=== PATIENT | female | born 1945 | race Caucasian/White ===

== ENCOUNTER 2016-11-03 14:40 | Inpatient (IN) | payer MEDICARE, OTHER ==
--- NOTE | 2016-11-03 15:08 | ED ---
General Adult HPI - General Chief complaint: Neuro Symptoms/Deficit Stated complaint: TIA Symptoms Time Seen by Provider: 11/03/16 14:45 Source: patient, RN notes reviewed Mode of arrival: wheelchair Limitations: no limitations - History of Present Illness Initial comments: This is a 70-year-old female with past medical history significant for quadruple bypass as well as a TIA and 05. Patient comes in today stating that since yesterday morning she has had some weakness in her right hand and dragging her right foot a little she says is better today but she still doesn't quite feel at her baseline. Patient states she has difficulty holding onto thinks today. Patient denies any slurred speech patient denies any blurred vision patient denies headache patient denies any recent injury or trauma. Patient denies any chest pain palpitations difficulty breathing shortness of breath Patient denies abdominal pain patient denies nausea vomiting diarrhea. Patient denies any recent fever chills or cough. - Related Data Home Medications Medication Instructions Recorded Confirmed Aspirin EC [Ecotrin Low Dose] 81 mg PO DAILY 11/03/16 11/03/16 Carvedilol [Coreg] 6.25 mg PO BID 11/03/16 11/03/16 Cholecalciferol [Vitamin D3] 400 unit PO DAILY 11/03/16 11/03/16 Citrucel-Fiber 1 tab PO QID 11/03/16 11/03/16 Clopidogrel Bisulfate [Plavix] 75 mg PO DAILY 11/03/16 11/03/16 Dulaglutide [Trulicity] 0.75 mg SQ MINOR 11/03/16 11/03/16 Ezetimibe/Simvastatin [Vytorin 1 tab PO DAILY 11/03/16 11/03/16 10-40 mg Tablet] Insulin Glargine [Lantus] 6 unit SQ HS 11/03/16 11/03/16 Isosorbide Mononitrate ER [Imdur] 30 mg PO DAILY 11/03/16 11/03/16 L.acidoph,Paracasei, B.lactis 1 cap PO BID 11/03/16 11/03/16 [Probiotic] Levothyroxine Sodium [Synthroid] 75 mcg PO DAILY 11/03/16 11/03/16 Lisinopril [Zestril] 2.5 mg PO DAILY 11/03/16 11/03/16 Vitamin B Complex 1 cap PO BID 11/03/16 11/03/16 Allergies Allergy/AdvReac Type Severity Reaction Status Date / Time No Known Allergies Allergy Verified 11/03/16 15:22 Review of Systems ROS Statement: Those systems with pertinent positive or pertinent negative responses have been documented in the HPI. ROS Other: All systems not noted in ROS Statement are negative. Past Medical History Past Medical History: Coronary Artery Disease (CAD), CVA/TIA, Diabetes Mellitus , Hyperlipidemia, Hypertension, Thyroid Disorder History of Any Multi-Drug Resistant Organisms: None Reported Past Surgical History: Appendectomy, Bladder Surgery, Cholecystectomy, Coronary Bypass/CABG, Heart Catheterization With Stent, Hysterectomy, Tubal Ligation Additional Past Surgical History / Comment(s): cataract extraction Past Psychological History: No Psychological Hx Reported Smoking Status: Never smoker Past Alcohol Use History: None Reported Past Drug Use History: None Reported General Exam - General Exam Comments Initial Comments: GENERAL: Patient is well-developed and well-nourished. Patient is nontoxic and well- hydrated and is in no acute distress. ENT: Neck is soft and supple. No significant lymphadenopathy is noted. Oropharynx is clear. Moist mucous membranes. Neck has full range of motion without eliciting any pain. EYES: The sclera were anicteric and conjunctiva were pink and moist. Extraocular movements were intact and pupils were equal round and reactive to light. Eyelids were unremarkable. PULMONARY: Unlabored respirations. Good breath sounds bilaterally. No audible rales rhonchi or wheezing was noted. CARDIOVASCULAR: There is a regular rate and rhythm without any murmurs gallops or rubs. ABDOMEN: Soft and nontender with normal bowel sounds. No palpable organomegaly was noted. There is no palpable pulsatile mass. SKIN: Skin is clear with no lesions or rashes and otherwise unremarkable. NEUROLOGIC: Patient is alert and oriented x3. Cranial nerves II through XII are grossly intact. Motor and sensory are also intact. Normal speech, volume and content. Symmetrical smile. Cerebellar finger to nose testing is normal MUSCULOSKELETAL: Normal extremities with adequate strength and full range of motion. No lower extremity swelling or edema. No calf tenderness. LYMPHATICS: No significant lymphadenopathy is noted PSYCHIATRIC: Normal psychiatric evaluation. Normal interpersonal interactions appears functionally intact in deals appropriately with others. No signs of depression. No signs of anxiety. Limitations: no limitations Course Vital Signs 11/03/16 11/03/16 14:43 16:01 Temperature 98.5 F Pulse Rate 81 74 Respiratory 16 18 Rate Blood Pressure 135/85 134/65 O2 Sat by Pulse 98 95 Oximetry Medical Decision Making - Medical Decision Making EKG shows normal sinus rhythm at 70 bpm OH interval is 162 QRS is 82 QT interval 392 QTC is 446. EKG shows no ST segment elevation or depression or T wave normalities are noted. Chest the x-ray is normal. CT of the brain is normal. I spoke with Dr. Boswell he agreed to admit the patient admitted patient for TIA. I consult neurology. Patient stated she did not want to go to Dr. Brown so I admitted the patient to Dr. Boswell - Lab Data Result diagrams: 11/03/16 15:11 11/03/16 15:11 Lab Results 11/03/16 11/03/16 11/03/16 Range/Units 15:11 15:11 15:11 WBC 8.1 (3.8-10.6) k/uL RBC 3.63 L (3.80-5.40) m/uL Hgb 11.2 L (11.4-16.0) gm/dL Hct 32.3 L (34.0-46.0) % MCV 89.1 (80.0-100.0) fL MCH 31.0 (25.0-35.0) pg MCHC 34.8 (31.0-37.0) g/dL RDW 12.4 (11.5-15.5) % Plt Count 204 (150-450) k/uL Neutrophils % 65 % Lymphocytes % 27 % Monocytes % 4 % Eosinophils % 2 % Basophils % 1 % Neutrophils # 5.3 (1.3-7.7) k/uL Lymphocytes # 2.2 (1.0-4.8) k/uL Monocytes # 0.3 (0-1.0) k/uL Eosinophils # 0.2 (0-0.7) k/uL Basophils # 0.0 (0-0.2) k/uL PT (9.0-12.0) sec INR (<1.2) APTT (22.0-30.0) sec Sodium 141 (137-145) mmol/L Potassium 4.3 (3.5-5.1) mmol/L Chloride 107 (98-107) mmol/L Carbon Dioxide 23 (22-30) mmol/L Anion Gap 11 mmol/L BUN 20 H (7-17) mg/dL Creatinine 0.90 (0.52-1.04) mg/dL Est GFR (MDRD) Af Amer >60 (>60 ml/min/1.73 sqM) Est GFR (MDRD) Non-Af >60 (>60 ml/min/1.73 sqM) Glucose 179 H (74-99) mg/dL Calcium 9.7 (8.4-10.2) mg/dL Total Bilirubin 0.6 (0.2-1.3) mg/dL AST 47 H (14-36) U/L ALT 67 H (9-52) U/L Alkaline Phosphatase 56 (38-126) U/L Total Creatine Kinase 100 (30-135) U/L CK-MB (CK-2) 1.5 (0.0-2.4) ng/mL CK-MB (CK-2) Rel Index 1.5 Troponin I <0.012 (0.000-0.034) ng/mL Total Protein 7.5 (6.3-8.2) g/dL Albumin 4.1 (3.5-5.0) g/dL 11/03/16 Range/Units 15:11 WBC (3.8-10.6) k/uL RBC (3.80-5.40) m/uL Hgb (11.4-16.0) gm/dL Hct (34.0-46.0) % MCV (80.0-100.0) fL MCH (25.0-35.0) pg MCHC (31.0-37.0) g/dL RDW (11.5-15.5) % Plt Count (150-450) k/uL Neutrophils % % Lymphocytes % % Monocytes % % Eosinophils % % Basophils % % Neutrophils # (1.3-7.7) k/uL Lymphocytes # (1.0-4.8) k/uL Monocytes # (0-1.0) k/uL Eosinophils # (0-0.7) k/uL Basophils # (0-0.2) k/uL PT 10.8 (9.0-12.0) sec INR 1.1 (<1.2) APTT 22.1 (22.0-30.0) sec Sodium (137-145) mmol/L Potassium (3.5-5.1) mmol/L Chloride (98-107) mmol/L Carbon Dioxide (22-30) mmol/L Anion Gap mmol/L BUN (7-17) mg/dL Creatinine (0.52-1.04) mg/dL Est GFR (MDRD) Af Amer (>60 ml/min/1.73 sqM) Est GFR (MDRD) Non-Af (>60 ml/min/1.73 sqM) Glucose (74-99) mg/dL Calcium (8.4-10.2) mg/dL Total Bilirubin (0.2-1.3) mg/dL AST (14-36) U/L ALT (9-52) U/L Alkaline Phosphatase (38-126) U/L Total Creatine Kinase (30-135) U/L CK-MB (CK-2) (0.0-2.4) ng/mL CK-MB (CK-2) Rel Index Troponin I (0.000-0.034) ng/mL Total Protein (6.3-8.2) g/dL Albumin (3.5-5.0) g/dL Disposition Clinical Impression: Transient cerebral ischemia Disposition: ADMITTED IP TO THIS HOSP Referrals: Arie Brown MD [Primary Care Provider] - 1-2 days Time of Disposition: 16:36
[2016-11-03 15:50] LABS: Basophils % (A) 1 %; CH 30.7; CHCM 34.6; Eosinophils # (A) 0.2 k/uL (0-0.7); Eosinophils % (A) 2 %; HCT 32.3 % (34.0-46.0); HDW 2.69; HGB 11.2 gm/dL (11.4-16.0); Luc % (Auto) 1; Lymphocytes # (A) 2.2 k/uL (1.0-4.8); Lymphocytes % (A) 27 %; MCHC 34.8 g/dL (31.0-37.0); MCV 89.1 fL (80.0-100.0); Mean Platelet Volume 7.5; Monocytes # (A) 0.3 k/uL (0-1.0); Monocytes % (A) 4 %; Neutrophils # (A) 5.3 k/uL (1.3-7.7); Neutrophils % (A) 65 %; RBC 3.63 m/uL (3.80-5.40); RDW 12.4 % (11.5-15.5); WBC 8.1 k/uL (3.8-10.6); WBC (Perox) 8.07
--- NOTE | 2016-11-03 15:56 | CT ---
EXAMINATION TYPE: CT brain wo con for TPA DATE OF EXAM: 11/03/2016 COMPARISON: NONE HISTORY: Right sided weakness to upper and lower extremity. History of TIA. CT DLP: 1012.60 mGycm Automated exposure control for dose reduction was used. FINDINGS: Cortical atrophy is present. There is no hemorrhage or hydrocephalus. Periventricular white matter lo w-attenuation likely due to chronic small vessel ischemia. 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 Cer ebral vascular calcifications are present. The orbits show symmetric appearance. IMPRESSION: NO ACUTE ABNORMALITIES EVIDENT.
--- NOTE | 2016-11-03 15:57 | XR ---
EXAMINATION TYPE: XR chest 2V DATE OF EXAM: 11/03/2016 COMPARISON: NONE HISTORY: Altered mental status TECHNIQUE: Frontal and lateral views of the chest are obtained. FINDINGS: Patient is post median sternotomy and rotated. There are epicardial pacing leads and overl xiomara cardiac leads. Cardiac mediastinal silhouette, pulmonary vascularity and kael within normal limi ts. Dense nodule overlying the right upper lobe may be due to calcified granuloma. No evident pneumon ia, pneumothorax, or pleural effusion. Aorta is dense. IMPRESSION: No acute cardiopulmonary process.
[2016-11-03 16:00] LABS: INR 1.1 (<1.2); Partial Thromboplastin Time 22.1 sec (22.0-30.0); Prothrombin Time 10.8 sec (9.0-12.0)
[2016-11-03 16:02] LABS: ALT 67 U/L (9-52); AST 47 U/L (14-36); Alkaline Phosphatase 56 U/L (38-126); Anion Gap 11 mmol/L; Blood Urea Nitrogen 20 mg/dL (7-17); Calcium 9.7 mg/dL (8.4-10.2); Carbon Dioxide 23 mmol/L (22-30); Chloride 107 mmol/L (98-107); Glucose 179 mg/dL (74-99); Non-African American GFR(MDRD) >60 (>60 ml/min/1.73 sqM); Potassium 4.3 mmol/L (3.5-5.1); Sodium 141 mmol/L (137-145); Total Bilirubin 0.6 mg/dL (0.2-1.3); Total Protein 7.5 g/dL (6.3-8.2)
[2016-11-03 16:17] LABS: Creatine Kinase 100 U/L (30-135)
[2016-11-03 16:31] LABS: Creatine Kinase MB 1.5 ng/mL (0.0-2.4); Troponin I <0.012 ng/mL (0.000-0.034)
--- NOTE | 2016-11-03 17:41 | US ---
EXAMINATION TYPE: US carotid duplex BILAT DATE OF EXAM: 11/03/2016 COMPARISON: NONE CLINICAL HISTORY: Stenosis. right hand weakness, difficulty walking EXAM MEASUREMENTS: RIGHT: Peak Systolic Velocity (PSV) cm/sec ----- Right CCA: 94.2 ----- Right ICA: 123.9 ----- Right ECA: 90.5 ICA/CCA ratio: 1.3 RIGHT: End Diastole cm/sec ----- Right CCA: 29.8 ----- Right ICA: 38.3 ----- Right ECA: 11.9 LEFT: Peak Systolic Velocity (PSV) cm/sec ----- Left CCA: 83.3 ----- Left ICA: 104.4 ----- Left ECA: 86.3 ICA/CCA ratio: 1.3 LEFT: End Diastole cm/sec ----- Left CCA: 27.1 ----- Left ICA: 38.3 ----- Left ECA: 9.8 VERTEBRALS (direction of flow): Right Vertebral: Antegrade Left Vertebral: Antegrade Mild plaque noted bilateral bifurcations. No evidence of significant stenosis. IMPRESSION: There is antegrade flow in the vertebral arteries. The images and measurements suggest 2 5-45% stenosis in both internal carotid arteries. Criteria for Assigning % of Stenosis / Diameter reduction (Estimation based on the indirect measurements of the internal carotid artery velocities (ICA PSV). 1. Normal (no stenosis)=ICA PSV < 125 cm/s: ratio < 2.0: ICA EDV<40 cm/s. 2. Less than 50% stenosis=ICA PSV < 125 cm/s: ratio < 2.0: ICA EDV<40 cm/s. 3. 50 to 69% stenosis=ICA PSV of 125 to 230 cm/s: ration 2.0 ? 4.0: ICA EDV 40-100 cm/s. 4. Greater than 70% stenosis to near occlusion= ICA PSV > 230 cm/s: ratio > 4.0: ICA EDV > 100 cm/s. 5. Near occlusion= ICA PSV velocities may be low or undetectable: variable ratio and ICA EDV. 6. Total occlusion=unable to detect flow.
[2016-11-03] MEDS ORDERED: ONDANSETRON 4 MG/2 ML VIAL IVP PRN (18:51)
[2016-11-03] MEDS ORDERED: ACETAMINOPHEN TAB 325 MG TAB PO PRN (18:51)
--- NOTE | 2016-11-03 19:43 | P.CNNES ---
History of Present Illness Consult date: 11/03/16 Requesting physician: Arie Brown Reason for Consult: TIA Chief complaint: TIA History of Present Illness: The patient is a pleasant 70-year-old female who is being evaluated by the neurology service per the request of Dr. Boswell for a transient ischemic attack. The patient states that she felt like she was having off-balance numbness and some right sided weakness. The symptoms started yesterday around 10 AM. She did not seek any medical attention because she was out of town. Her symptoms lasted all day and started to improve early this morning. She did come in today with minimal right hemiparesis. The patient does have a previous history of transient ischemic attack over 10 years ago. She does take aspirin and Plavix, mainly for history of coronary artery disease. I did review her computed tomography scan of the brain which was normal except for mild generalized atrophy. Her carotid Doppler showed 25-45% stenosis, with no hemodynamically significant stenosis. Her CBC was normal except for mild anemia with a hemoglobin of 11.2. Her cardiac enzymes were normal. Her comprehensive metabolic profile was normal except for mild hepatic insufficiency with an AST of 47 and an ALT of 67. The patient was admitted for further workup and management. At the time of my evaluation, she is sitting up in her bedside chair and appears to be in no acute distress. She reports resolution of her right-sided weakness and she has been ambulating with no difficulties. She does complain of a chronic history of lower extremity cramps with no numbness or tingling. The symptoms mostly occur at night and these have caused significant insomnia at times. Review of Systems All systems: negative Constitutional: Denies chills, Denies fever Eyes: denies blurred vision, denies pain Ears, nose, mouth and throat: Denies headache, Denies sore throat Cardiovascular: Denies chest pain, Denies shortness of breath Respiratory: Denies cough Gastrointestinal: Denies abdominal pain, Denies diarrhea, Denies nausea, Denies vomiting Genitourinary: Denies dysuria, Denies hematuria Musculoskeletal: Reports muscle cramps, Reports myalgias Integumentary: Denies pruritus, Denies rash Neurological: Reports as per HPI, Denies numbness Psychiatric: Denies anxiety, Denies depression Endocrine: Denies fatigue, Denies weight change Past Medical History Past Medical History: Coronary Artery Disease (CAD), Chest Pain / Angina, CVA/ TIA, Diabetes Mellitus, Hyperlipidemia, Hypertension, Thyroid Disorder Additional Past Medical History / Comment(s): pt is rt side dominant History of Any Multi-Drug Resistant Organisms: None Reported Past Surgical History: Appendectomy, Bladder Surgery, Cholecystectomy, Coronary Bypass/CABG, Heart Catheterization With Stent, Hysterectomy, Tubal Ligation Additional Past Surgical History / Comment(s): cataract extraction, dental implant and has upper bridge. pt believes she had 2 stents after her cabg sx. Past Anesthesia/Blood Transfusion Reactions: No Reported Reaction Additional Past Anesthesia/Blood Transfusion Reaction / Comment(s): clausterphobia Date of Last Stent Placement:: unk Smoking Status: Never smoker - Past Family History Mother Family Medical History: Cancer Additional Family Medical History / Comment(s): lung cancer Father Family Medical History: Dementia Medications and Allergies Home Medications Medication Instructions Recorded Confirmed Type Aspirin EC [Ecotrin Low Dose] 81 mg PO DAILY 11/03/16 11/03/16 History Carvedilol [Coreg] 6.25 mg PO BID 11/03/16 11/03/16 History Cholecalciferol [Vitamin D3] 400 unit PO DAILY 11/03/16 11/03/16 History Citrucel-Fiber 1 tab PO QID 11/03/16 11/03/16 History Clopidogrel Bisulfate [Plavix] 75 mg PO DAILY 11/03/16 11/03/16 History Dulaglutide [Trulicity] 0.75 mg SQ MINOR 11/03/16 11/03/16 History Ezetimibe/Simvastatin [Vytorin 1 tab PO DAILY 11/03/16 11/03/16 History 10-40 mg Tablet] Insulin Glargine [Lantus] 6 unit SQ HS 11/03/16 11/03/16 History Isosorbide Mononitrate ER [Imdur] 30 mg PO DAILY 11/03/16 11/03/16 History L.acidoph,Paracasei, B.lactis 1 cap PO BID 11/03/16 11/03/16 History [Probiotic] Levothyroxine Sodium [Synthroid] 75 mcg PO DAILY 11/03/16 11/03/16 History Lisinopril [Zestril] 2.5 mg PO DAILY 11/03/16 11/03/16 History Vitamin B Complex 1 cap PO BID 11/03/16 11/03/16 History Allergies Allergy/AdvReac Type Severity Reaction Status Date / Time No Known Allergies Allergy Verified 11/03/16 15:22 Physical Examination - Vital Signs Vital Signs: Vital Signs Temp Pulse Pulse Resp BP BP Pulse Ox 11/03/16 18:15 98.8 F 75 17 130/64 98 11/03/16 17:55 97.8 F 75 19 138/89 97 11/03/16 17:25 98.7 F 72 18 143/67 97 11/03/16 16:37 97.1 F L 73 17 131/91 98 11/03/16 16:01 74 18 134/65 95 11/03/16 14:43 98.5 F 81 16 135/85 98 Intake and Output 11/03/16 11/03/16 11/03/16 06:59 14:59 22:59 Output Total 200 Balance -200 Output: Urine 200 Other: Weight 70.307 kg Patient Weight 11/04/16 06:59 Weight 70.307 kg - Constitutional General appearance: average body habitus - EENT EENT: ATNC, PERRL - Cardiovascular Cardiovascular: regular rate Extremities: no peripheral edema bilaterally, no clubbing, cyanosis - Gastrointestinal Gastrointestinal: soft, non-tender - Integumentary Integumentary: normal - Neurologic The patient is alert aware and oriented 3. Speech and language are normal. Strength is full in all 4 extremities. Sensory exam was normal to light touch in all 4 extremities. [id number] testing showed no dysmetria. No facial asymmetry is noticed on cranial nerve testing. No tremors or seizure- like activity is seen. Detailed motor examination: grossly full strength in all extremities - Musculoskeletal Musculoskeletal: no fluid collection - Psychiatric Psychiatric: mood/affect appropriate, cooperative Results - Laboratory Findings CBC and BMP: 11/03/16 15:11 11/03/16 15:11 Abnormal Lab Findings: Abnormal Labs 11/03/16 11/03/16 15:11 15:11 RBC 3.63 L Hgb 11.2 L Hct 32.3 L BUN 20 H Glucose 179 H AST 47 H ALT 67 H - Diagnostic Findings Comments: I did review her computed tomography scan of the brain, carotid Doppler, and laboratory workup. Assessment and Plan (1) Weakness of right side of body Status: Acute (2) Transient cerebral ischemia Status: Acute (3) Lower extremity pain Status: Chronic (4) Muscle cramping Status: Chronic Plan: The patient does appear to have suffered a transient ischemic attack with a transient episode of right hemiparesis and disequilibrium. The patient was advised to always seek immediate medical attention if any strokelike symptoms occur. Her symptoms have resolved at this time. She is already on aspirin and Plavix at home and I do recommend continuing this antiplatelet regimen. I will order a fasting lipid panel, EEG, and serum homocysteine level. She is already on statin therapy for her dyslipidemia. Her liver enzymes were slightly elevated and I do recommend continuing to monitor her levels, being on a statin drug. As for her lower extremity discomfort, further outpatient neurophysiological workup will be needed. Continue the rest of your current workup and management. I will continue to follow with you. Further recommendations to follow. Time with Patient: Greater than 30
[2016-11-03 20:47] LABS: Glucose,Whole Blood 259 mg/dL (75-99)
[2016-11-03] MEDS ORDERED: INSULIN GLARGINE 100 UNIT/ML 10 ML VIAL SQ SCH (21:00)
[2016-11-03] MEDS: SODIUM CHLORIDE 0.9% 1,000 ML IV SCH (21:02)
[2016-11-03] MEDS: CARVEDILOL 6.25 MG TAB PO SCH (21:03)
[2016-11-03] MEDS: B COMPLEX-VIT C-VIT E-ZINC 1 EACH TAB PO SCH (21:03)
[2016-11-03] MEDS: CALCIUM POLYCARBOPHIL 625 MG TAB PO SCH (21:03)
[2016-11-03] MEDS: LACTOBACILLUS ACIDOPH & BULGAR 1 EACH PACKET PO SCH (21:03)
[2016-11-03] MEDS ORDERED: CALCIUM POLYCARBOPHIL 625 MG TAB PO SCH (22:00)
[2016-11-04 00:27] VITALS: TEMP 97.8
[2016-11-04 05:14] VITALS: BP 92/48; PULSE 72
[2016-11-04 05:46] LABS: Glucose,Whole Blood 121 mg/dL (75-99)
[2016-11-04] MEDS: CARVEDILOL 6.25 MG TAB PO SCH (06:26)
[2016-11-04] MEDS ORDERED: LEVOTHYROXINE 75 MCG TAB PO SCH (06:30)
[2016-11-04 06:41] LABS: Basophils % (A) 1 %; CH 31.1; CHCM 33.8; Eosinophils # (A) 0.2 k/uL (0-0.7); Eosinophils % (A) 3 %; HCT 34.4 % (34.0-46.0); HDW 2.61; HGB 11.5 gm/dL (11.4-16.0); Luc # (Auto) 0.08; Luc % (Auto) 1; Lymphocytes # (A) 2.2 k/uL (1.0-4.8); Lymphocytes % (A) 34 %; MCHC 33.4 g/dL (31.0-37.0); MCV 92.6 fL (80.0-100.0); Monocytes # (A) 0.3 k/uL (0-1.0); Monocytes % (A) 5 %; Neutrophils # (A) 3.7 k/uL (1.3-7.7); Neutrophils % (A) 56 %; RBC 3.71 m/uL (3.80-5.40); RDW 13.4 % (11.5-15.5); WBC 6.6 k/uL (3.8-10.6); WBC (Perox) 7.16
[2016-11-04 07:01] LABS: Anion Gap 7 mmol/L; Blood Urea Nitrogen 17 mg/dL (7-17); Calcium 9.4 mg/dL (8.4-10.2); Carbon Dioxide 29 mmol/L (22-30); Chloride 105 mmol/L (98-107); Cholesterol 148 mg/dL (<200); Glucose 125 mg/dL (74-99); HDL Cholesterol 46 mg/dL (40-60); Non-African American GFR(MDRD) 57 (>60 ml/min/1.73 sqM); Potassium 4.4 mmol/L (3.5-5.1); Sodium 141 mmol/L (137-145); Triglycerides 218 mg/dL (<150)
[2016-11-04] MEDS ORDERED: PANTOPRAZOLE 40 MG TABLET PO SCH (07:30)
[2016-11-04] MEDS ORDERED: CHOLECALCIFEROL 400 UNIT TAB PO SCH (09:00)
[2016-11-04] MEDS ORDERED: EZETIMIBE 10 MG TAB PO SCH (09:00)
[2016-11-04] MEDS ORDERED: LISINOPRIL 2.5 MG TAB PO SCH (09:00)
[2016-11-04] MEDS ORDERED: ASPIRIN 81 MG CHEW PO SCH (09:00)
[2016-11-04] MEDS ORDERED: ATORVASTATIN 20 MG TAB PO SCH (09:00)
[2016-11-04] MEDS ORDERED: ISOSORBIDE MONONITRATE ER 30 MG TAB.ER.24H PO SCH (09:00)
--- NOTE | 2016-11-04 09:27 | P.HPIM ---
History of Present Illness H&P Date: 11/04/16 Chief Complaint: Altered mental status This is history of physical 70-year-old white female essentially admitted for altered mental status. She was at a restaurant 2 days ago and had brief alteration of mentation. Her she was with her who called the ambulance. She is now stable. She states that since she's been in the ambulance, she's had no symptoms. However, she has history of open heart surgery. The patient states no recent history of TIA symptoms. However, after evaluation in emergency room, she is appropriately admitted for this. Neurology is on consultation. I've seen her this morning without significant issue. Mentally she is back to her baseline as far as conversation. No numbness or Sima. No amaurosis fugax stated. Review of Systems Constitutional: Denies chills, Denies fever Eyes: denies blurred vision, denies pain Ears, nose, mouth and throat: Denies headache, Denies sore throat Cardiovascular: Denies chest pain, Denies shortness of breath Respiratory: Denies cough Gastrointestinal: Denies abdominal pain, Denies diarrhea, Denies nausea, Denies vomiting Genitourinary: Denies dysuria, Denies hematuria Neurological: Reports confusion Psychiatric: Denies anxiety, Denies depression Past Medical History Past Medical History: Coronary Artery Disease (CAD), Chest Pain / Angina, CVA/ TIA, Diabetes Mellitus, Hyperlipidemia, Hypertension, Thyroid Disorder Additional Past Medical History / Comment(s): pt is rt side dominant History of Any Multi-Drug Resistant Organisms: None Reported Past Surgical History: Appendectomy, Bladder Surgery, Cholecystectomy, Coronary Bypass/CABG, Heart Catheterization With Stent, Hysterectomy, Tubal Ligation Additional Past Surgical History / Comment(s): cataract extraction, dental implant and has upper bridge. pt believes she had 2 stents after her cabg sx. Past Anesthesia/Blood Transfusion Reactions: No Reported Reaction Additional Past Anesthesia/Blood Transfusion Reaction / Comment(s): clausterphobia Date of Last Stent Placement:: unk Smoking Status: Never smoker - Past Family History Mother Family Medical History: Cancer Additional Family Medical History / Comment(s): lung cancer Father Family Medical History: Dementia Medications and Allergies Home Medications Medication Instructions Recorded Confirmed Type Aspirin EC [Ecotrin Low Dose] 81 mg PO DAILY 11/03/16 11/03/16 History Carvedilol [Coreg] 6.25 mg PO BID 11/03/16 11/03/16 History Cholecalciferol [Vitamin D3] 400 unit PO DAILY 11/03/16 11/03/16 History Citrucel-Fiber 1 tab PO QID 11/03/16 11/03/16 History Clopidogrel Bisulfate [Plavix] 75 mg PO DAILY 11/03/16 11/03/16 History Dulaglutide [Trulicity] 0.75 mg SQ MINOR 11/03/16 11/03/16 History Ezetimibe/Simvastatin [Vytorin 1 tab PO DAILY 11/03/16 11/03/16 History 10-40 mg Tablet] Insulin Glargine [Lantus] 6 unit SQ HS 11/03/16 11/03/16 History Isosorbide Mononitrate ER [Imdur] 30 mg PO DAILY 11/03/16 11/03/16 History L.acidoph,Paracasei, B.lactis 1 cap PO BID 11/03/16 11/03/16 History [Probiotic] Levothyroxine Sodium [Synthroid] 75 mcg PO DAILY 11/03/16 11/03/16 History Lisinopril [Zestril] 2.5 mg PO DAILY 11/03/16 11/03/16 History Vitamin B Complex 1 cap PO BID 11/03/16 11/03/16 History Allergies Allergy/AdvReac Type Severity Reaction Status Date / Time No Known Allergies Allergy Verified 11/03/16 15:22 Physical Exam Vitals: Vital Signs Temp Pulse Pulse Resp BP BP Pulse Ox 11/04/16 04:00 97.8 F 72 17 92/48 96 11/04/16 00:00 97.8 F 78 16 98/52 97 11/03/16 20:00 97.9 F 72 17 85/50 98 11/03/16 18:15 98.8 F 75 17 130/64 98 11/03/16 17:55 97.8 F 75 19 138/89 97 11/03/16 17:25 98.7 F 72 18 143/67 97 11/03/16 16:37 97.1 F L 73 17 131/91 98 11/03/16 16:01 74 18 134/65 95 11/03/16 14:43 98.5 F 81 16 135/85 98 Intake and Output 11/03/16 11/04/16 11/04/16 22:59 06:59 14:59 Intake Total 600 Output Total 200 Balance -200 600 Intake: Intake, IV Titration 600 Amount Sodium Chloride 0.9% 1, 600 000 ml @ 75 mls/hr IV . [id number] [facility] Rx#:[id number] Output: Urine 200 Other: Voiding Method Toilet Toilet # Voids 2 Weight 70.2 kg - Constitutional General appearance: no acute distress - EENT Eyes: EOMI - Neck Neck: no lymphadenopathy - Respiratory Respiratory: bilateral: CTA - Cardiovascular Rhythm: regular Heart sounds: normal: S1, S2 - Gastrointestinal General gastrointestinal: soft, no tenderness - Neurologic Neurologic: CNII-XII intact - Musculoskeletal Musculoskeletal: gait normal - Psychiatric Psychiatric: A&O x's 3, appropriate affect Results CBC & Chem 7: 11/04/16 06:22 11/04/16 06:22 Labs: Abnormal Lab Results - Last 24 Hours (Table) 11/03/16 11/03/16 11/03/16 Range/Units 15:11 15:11 20:45 RBC 3.63 L (3.80-5.40) m/uL Hgb 11.2 L (11.4-16.0) gm/dL Hct 32.3 L (34.0-46.0) % BUN 20 H (7-17) mg/dL Glucose 179 H (74-99) mg/dL POC Glucose (mg/dL) 259 H (75-99) mg/dL AST 47 H (14-36) U/L ALT 67 H (9-52) U/L Triglycerides (<150) mg/dL 11/04/16 11/04/16 11/04/16 Range/Units 05:44 06:22 06:22 RBC 3.71 L (3.80-5.40) m/uL Hgb (11.4-16.0) gm/dL Hct (34.0-46.0) % BUN (7-17) mg/dL Glucose 125 H (74-99) mg/dL POC Glucose (mg/dL) 121 H (75-99) mg/dL AST (14-36) U/L ALT (9-52) U/L Triglycerides 218 H (<150) mg/dL Assessment and Plan (1) History of coronary artery bypass graft Status: Acute (2) Transient cerebral ischemia Status: Acute (3) Weakness of right side of body Status: Acute Plan: Go ahead and rule out any type of new vasculopathy. EEG with tachycardia, carotid Doppler pending. We'll anticipate discharge once cleared by neurology. The patient again seems back to baseline. See orders otherwise. Otherwise, laboratory results and testing/radiology have been reviewed. Time with Patient: Less than 30
--- NOTE | 2016-11-04 09:29 | P.DS ---
Providers Date of admission: 11/03/16 16:37 Attending physician: Bunny Boswell MD Consults: 11/03/16 16:37 Consult Physician Routine Consulting Provider: Ana Roy Consult Reason/Comments: TIA Do you want consulting provider notified?: Yes Primary care physician: Arie Brown - Discharge Diagnosis(es) (1) History of coronary artery bypass graft Current Visit: Yes Status: Acute (2) Transient cerebral ischemia Current Visit: Yes Status: Acute (3) Weakness of right side of body Current Visit: Yes Status: Acute Hospital Course: This discharge summary 70-year-old white female essentially meant for transient ischemic attack symptoms with right-sided weakness. She did have episode of altered mental status. However, she has now back to baseline. Neurologic workup is pending. Once this completed and cleared by neurology, I suspect she will be discharged in stable condition. She is seemingly back to her baseline normality. Plan - Discharge Summary New Discharge Prescriptions: No Action Dulaglutide [Trulicity] 0.75 mg SQ MINOR Aspirin EC [Ecotrin Low Dose] 81 mg PO DAILY Carvedilol [Coreg] 6.25 mg PO BID Cholecalciferol [Vitamin D3] 400 unit PO DAILY Citrucel-Fiber 1 tab PO QID Clopidogrel Bisulfate [Plavix] 75 mg PO DAILY Ezetimibe/Simvastatin [Vytorin 10-40 mg Tablet] 1 tab PO DAILY Insulin Glargine [Lantus] 6 unit SQ HS Isosorbide Mononitrate ER [Imdur] 30 mg PO DAILY L.acidoph,Paracasei, B.lactis [Probiotic] 1 cap PO BID Levothyroxine Sodium [Synthroid] 75 mcg PO DAILY Lisinopril [Zestril] 2.5 mg PO DAILY Vitamin B Complex 1 cap PO BID Discharge Medication List Aspirin EC [Ecotrin Low Dose] 81 mg PO DAILY 11/03/16 [History] Carvedilol [Coreg] 6.25 mg PO BID 11/03/16 [History] Cholecalciferol [Vitamin D3] 400 unit PO DAILY 11/03/16 [History] Citrucel-Fiber 1 tab PO QID 11/03/16 [History] Clopidogrel Bisulfate [Plavix] 75 mg PO DAILY 11/03/16 [History] Dulaglutide [Trulicity] 0.75 mg SQ MINOR 11/03/16 [History] Ezetimibe/Simvastatin [Vytorin 10-40 mg Tablet] 1 tab PO DAILY 11/03/16 [History ] Insulin Glargine [Lantus] 6 unit SQ HS 11/03/16 [History] Isosorbide Mononitrate ER [Imdur] 30 mg PO DAILY 11/03/16 [History] L.acidoph,Paracasei, B.lactis [Probiotic] 1 cap PO BID 11/03/16 [History] Levothyroxine Sodium [Synthroid] 75 mcg PO DAILY 11/03/16 [History] Lisinopril [Zestril] 2.5 mg PO DAILY 11/03/16 [History] Vitamin B Complex 1 cap PO BID 11/03/16 [History] Follow up Appointment(s)/Referral(s): Ana Roy MD [STAFF PHYSICIAN] - 1 Week Arie Brown MD [Primary Care Provider] - 1 Week Discharge Disposition: HOME SELF-CARE
[2016-11-04] MEDS: SODIUM CHLORIDE 0.9% 1,000 ML IV SCH (10:37)
[2016-11-04] MEDS: LACTOBACILLUS ACIDOPH & BULGAR 1 EACH PACKET PO SCH (10:40)
[2016-11-04] MEDS: CLOPIDOGREL 75 MG TAB PO SCH ×2 (10:41→10:42)
[2016-11-04] MEDS: CALCIUM POLYCARBOPHIL 625 MG TAB PO SCH (10:41)
[2016-11-04] MEDS: B COMPLEX-VIT C-VIT E-ZINC 1 EACH TAB PO SCH (10:42)
[2016-11-04 11:42] VITALS: RESP 16
[2016-11-04 11:46] LABS: Glucose,Whole Blood 124 mg/dL (75-99)
--- NOTE | 2016-11-05 05:16 | EEG ---
DATE OF SERVICE: 11/04/2016 REASON FOR TESTING: Transient ischemic attack. DESCRIPTION OF THE PROCEDURE: This EEG was performed using a 21-channel digital electroencephalograph, following international 10-20 system. DESCRIPTION OF THE RECORDING: From the beginning of the tracing, and with the patient's eyes closed. The background rhythm was mostly consisting of 9 Hz alpha frequency in the posterior occipital leads. No obvious asymmetry is seen. Photic stimulation was performed with a minimal driving response seen. No pathological waves were elicited. Hyperventilation was not performed. The patient does reach stage II of sleep during the tracing and occasional sleep spindles are seen. No epileptiform discharges were seen. Her EKG lead showed a regular rate and rhythm. INTERPRETATION: This asleep and awake EEG can be considered within normal limits. There was no asymmetry seen. No epileptiform discharges were noticed. The absence of epileptiform discharges does not rule out the diagnosis of epilepsy, therefore clinical correlation is recommended. MTDD
[2016-11-08] MEDS ORDERED: NON-FORMULARY DRUG (Dulaglutide [Trulicity] 0.75 MG) SQ SCH (18:55)
== END 2016-11-04 11:52 | disposition home or self-care (01) | DRG 69 ==
LOC: EC 14:40 → 6SEL 16:37
PROVIDERS: ADMIT Internal Medicine; ATTEND Internal Medicine
DX: G45.9 Transient cerebral ischemic attack, unspecified (principal); E11.9 Type 2 diabetes mellitus without complications; D64.9 Anemia, unspecified; E78.5 Hyperlipidemia, unspecified; I10 Essential (primary) hypertension; I25.10 Atherosclerotic heart disease of native coronary artery without angina pectoris; Z79.4 Long term (current) use of insulin; Z79.82 Long term (current) use of aspirin; Z80.1 Family history of malignant neoplasm of trachea, bronchus and lung; Z95.1 Presence of aortocoronary bypass graft; Z79.899 Other long term (current) drug therapy
CPT/HCPCS: 36415; 70450; 71020; 80048; 80053; 80061; 82550; 82553; 83090; 84484; 85025; 85610; 85730; 93005; 93880; 95819; 99285

== ENCOUNTER → 2017-02-17 | Outpatient (CLI) | payer MEDICARE, OTHER ==
--- NOTE | 2017-02-18 10:09 | ECHOF ---
Referral Reason:Dysnea R06.00 MEASUREMENTS -------- HEIGHT: 165.1 cm WEIGHT: 70.3 kg BP: RVIDd: 2.6 cm (< 3.3) IVSd: 1.0 cm (0.6 - 1.1) LVIDd: 4.2 cm (3.9 - 5.3) LVPWd: 1.0 cm (0.6 - 1.1) IVSs: 1.2 cm LVIDs: 3.3 cm LVPWs: 1.2 cm LA Diam: 3.5 cm (2.7 - 3.8) LAESV Index (A-L): 18.14 ml/m Ao Diam: 2.7 cm (2.0 - 3.7) AV Cusp: 1.7 cm (1.5 - 2.6) LA Diam: 3.5 cm (2.7 - 3.8) EPSS: 0.9 cm MV E Elieser: 0.45 m/s MV DecT: 265 ms MV A Elieser: 0.96 m/s MV E/A Ratio: 0.47 AR PHT: 607 ms RAP: 5.00 mmHg RVSP: 21.09 mmHg MV EF SLOPE: 54.83 mm/s (70 - 150) MV EXCURSION: 1.43 cm (> 18.000) FINDINGS -------- Undetermined rhythm. This was a technically adequate study. The left ventricular size is normal. There is mild concentric left ventricular hypertrophy. There is normal global left ventricular contractility. Overall left ventricular systolic function is low -normal with, an EF between 50 - 55 %. The diastolic filling pattern is normal for the age of the p atient 11.72. The right ventricle is normal in size. The right atrial size is normal. 1.5mg of Definity utilized Per Dr's Order. There is mild aortic valve sclerosis. Trace to mild aortic regurgitation. The mitral valve leaflets are mildly thickened. Mild mitral regurgitation is present. Mild tricuspid regurgitation present. There is no evidence of pulmonary hypertension. The right v entricular systolic pressure, as measured by Doppler, is 21.09mmHg. Trace/mild (physiologic) pulmonic regurgitation. The aortic root size is normal. There is no pericardial effusion. CONCLUSIONS -------- 1. The left ventricular size is normal. 2. There is mild concentric left ventricular hypertrophy. 3. There is normal global left ventricular contractility. 4. The diastolic filling pattern is normal for the age of the patient 11.72 5. The right ventricle is normal in size. 6. The right atrial size is normal. 7. 1.5mg of Definity utilized Per Dr's Order. 8. There is mild aortic valve sclerosis. 9. Trace to mild aortic regurgitation. 10. The mitral valve leaflets are mildly thickened. 11. Mild mitral regurgitation is present. 12. Mild tricuspid regurgitation present. 13. There is no evidence of pulmonary hypertension. 14. The right ventricular systolic pressure, as measured by Doppler, is 21.09mmHg. 15. Trace/mild (physiologic) pulmonic regurgitation. 16. The aortic root size is normal. 17. There is no pericardial effusion. PROJECT DEVELOPMENT DIRECTOR: Aruna Simms RDCS
== END | disposition home or self-care (01) ==
LOC: RADECHMAIN 11:14
PROVIDERS: ATTEND Internal Medicine Cardiovascular Disease
DX: I08.3 Combined rheumatic disorders of mitral, aortic and tricuspid valves (principal)
CPT/HCPCS: C8929; Q9957; 93306

== ENCOUNTER → 2017-05-19 | Outpatient (CLI) | payer MEDICARE, OTHER ==
--- NOTE | 2017-05-19 08:24 | XR ---
EXAMINATION TYPE: XR thoracic spine 3 views, XR lumbar spine 3V DATE OF EXAM: 05/19/2017 COMPARISON: NONE HISTORY: 71 year-old female bilateral thoracic pain and right-sided sciatica FINDINGS: Thoracic spine: Median sternotomy wires are present with CABG clips in the mediastinum. 12 rib bearing thoracic vert ebral bodies. All pedicles are visualized. There is mild to moderate endplate spondylosis throughout alignment appears maintained. There is mild superior endplate compression deformity with slight anter ior wedging of a midthoracic vertebral body, possibly T7. Lumbar spine: 5 lumbar type vertebral bodies. Facet arthropathy throughout especially mid to lower lumbar spine. Th ere is trace grade 1 anterolisthesis at L4-L5 and trace retrolisthesis at L2/L3. Associated moderate to severe degenerative disc disease and endplate spondylosis at L2-L3. Vertebral body heights are manuel ntained as described calcifications within the abdominal aorta and splenic artery are noted. IMPRESSION: 1. Thoracic spine: Mild anterior wedging of a midthoracic vertebral body, probably T7 suggesting an a ge indeterminate compression injury. Correlate for focal pain at this level. This background of mild to moderate spondylotic change. 2. Lumbar spine: No vertebral compression collapse. Degenerative grade 1 spondylolistheses at L2-L3 a nd L4-L5. Hypertrophic facet arthropathy throughout and degenerative disc disease greatest at L2-L3.
== END | disposition home or self-care (01) ==
LOC: RADXRMAIN 07:56
PROVIDERS: ATTEND Family Medicine
DX: M43.16 Spondylolisthesis, lumbar region (principal); M51.36 Other intervertebral disc degeneration, lumbar region; M46.96 Unspecified inflammatory spondylopathy, lumbar region; M53.86 Other specified dorsopathies, lumbar region; M47.814 Spondylosis without myelopathy or radiculopathy, thoracic region
CPT/HCPCS: 72070; 72100

== ENCOUNTER → 2017-06-04 | Outpatient (CLI) | payer MEDICARE, OTHER ==
--- NOTE | 2017-06-04 14:18 | XR ---
EXAMINATION TYPE: XR abdomen 1V DATE OF EXAM: 06/04/2017 2:02 PM CLINICAL HISTORY: Left lower quadrant pain with constipation. TECHNIQUE: Two supine KUB images of the abdomen are obtained. COMPARISON: None. FINDINGS: Scattered gas is seen in non-distended stomach and small bowel loops. Gas and fecal materia l is seen in non-distended colon. Moderate fecal material is fairly prominent in the right and left c olon. Epicardial pacer wires are felt present. Lung bases are clear. Vascular calcification and pelvi s is noted. There is disc space narrowing and spurring L2-L3 level. IMPRESSION: Overall nonobstructive bowel gas pattern. Fairly mild to borderline moderate colonic fecal stasis.
== END | disposition home or self-care (01) ==
LOC: RADXRMAIN 13:50
PROVIDERS: ATTEND Family Medicine
DX: K59.8 Other specified functional intestinal disorders (principal); R10.32 Left lower quadrant pain
CPT/HCPCS: 74018

== ENCOUNTER → 2017-06-21 | Outpatient (CLI) | payer MEDICARE, OTHER ==
--- NOTE | 2017-06-22 07:52 | US ---
EXAMINATION TYPE: US abdomen complete DATE OF EXAM: 06/21/2017 COMPARISON: NONE CLINICAL HISTORY: K85.90 ACUTE PANCREATITIS. EXAM MEASUREMENTS: Liver Length: 14.1 cm Gallbladder Wall: surgically absent CBD: 0.7 cm Spleen: 8.7 cm Right Kidney: 11.3 x 4.2 x 4.8 cm Left Kidney: 10.3 x 4.9 x 4.3 cm Extensive overlying midline bowel gas. Pancreas: Pancreatic parenchyma slightly hypoechoic compatible with the patient's history of pancreat itis. No visualized peripancreatic fluid collections are seen. No ductal dilatation. Pancreatic tail is obscured by bowel gas. Liver: wnl Gallbladder: Surgically absent Evidence for sonographic Hess's sign: CBD: wnl for the patient's age and surgical absence of the gallbladder. Spleen: wnl Right Kidney: No hydronephrosis or masses seen Left Kidney: No hydronephrosis or masses seen Upper IVC: wnl Abd Aorta: wnl The liver is homogenous. The intrahepatic portion of the IVC and proximal abdominal aorta are within normal limits. The spleen is unremarkable. Kidneys are symmetric and free of hydronephrosis. No renal lesions are seen. IMPRESSION: Hypoechoic pancreatic parenchymal echotexture compatible with the patient's known history of pancreat itis without visualized peripancreatic fluid collections or ductal dilatation.
== END | disposition home or self-care (01) ==
LOC: RADUSWWP 12:15
PROVIDERS: ATTEND Family Medicine
DX: K85.90 Acute pancreatitis without necrosis or infection, unspecified (principal)
CPT/HCPCS: 76700

== ENCOUNTER → 2017-07-21 | Outpatient (CLI) | payer MEDICARE, OTHER ==
--- NOTE | 2017-07-22 14:22 | MM ---
Reason for exam: screening (asymptomatic). Last mammogram was performed 3 years and 4 months ago. History: Patient is postmenopausal. Physical Findings: A clinical breast exam by your physician is recommended on an annual basis and results should be correlated with mammographic findings. MG Screening Mammo w CAD Bilateral CC and MLO view(s) were taken. Prior study comparison: April 03, 2014, bilateral MG screening mammo w CAD. October 09, 2011, bilateral digital screening mammo w/CAD. There are scattered fibroglandular densities. No significant changes when compared with prior studies. ASSESSMENT: Benign, BI-RAD 2 RECOMMENDATION: Routine screening mammogram of both breasts in 1 year.
== END | disposition home or self-care (01) ==
LOC: RADMAMWWP 09:44
PROVIDERS: ATTEND Family Medicine
DX: Z12.31 Encounter for screening mammogram for malignant neoplasm of breast (principal)
CPT/HCPCS: 77067

== ENCOUNTER → 2020-09-03 | Outpatient (CLI) | payer MEDICARE ==
--- NOTE | 2020-09-03 13:35 | US ---
EXAMINATION TYPE: US kidneys/renal and bladder DATE OF EXAM: 09/03/2020 COMPARISON: US 06/21/2017 CLINICAL HISTORY: N30.00 ACUTE CYSTITIS W/O HEMATURIA. EXAM MEASUREMENTS: Right Kidney: 9.7 x 4.5 x 4.4 cm Left Kidney: 10.3 x 5.5 x 4.4 cm Right Kidney: No hydronephrosis or shadowing renal calculi seen Left Kidney: No hydronephrosis or shadowing renal calculi seen Bladder: Not fully distended, wnl as visualized No evidence of hydronephrosis or shadowing renal calculi. IMPRESSION: 1. No hydronephrosis or shadowing renal calculi.
== END | disposition home or self-care (01) ==
LOC: RADUSWWP 07:27
PROVIDERS: ATTEND Urology
DX: N30.00 Acute cystitis without hematuria (principal)
CPT/HCPCS: 76770

== ENCOUNTER 2020-11-19 07:05 | Day surgery (SDC) | payer MEDICARE ==
[~2020-11-19 07:05] MED LIST: LACTATED RINGERS 1,000 ML IV SCH
[2020-11-19] MEDS ORDERED: LIDOCAINE 1% (10MG/ML) FOR IV START INTRADERMA ONE (07:51)
[2020-11-19 07:59] VITALS: RESP 16; TEMP 96.9
[2020-11-19 08:01] LABS: Glucose,Whole Blood 154 mg/dL (75-99)
[2020-11-19] MEDS ORDERED: LIDOCAINE 1% INJ 10MG/ML (20 ML MDV) ONE (08:06)
[2020-11-19] MEDS ORDERED: PROPOFOL 10 MG/ML 20 ML VIAL IV ONE (08:06)
--- NOTE | 2020-11-19 08:17 | P.PCN ---
Date of Procedure: 11/19/20 Procedure(s) Performed: Preoperative Dx: GERD Postoperative Dx: Gastritis, moderate sized hiatal hernia Procedure: EGD with Bx Anesthesia: Sedation Endoscopist: Dr. Lucas Specimens: Antrum Endoscopic Procedure: The patient was on the endoscopy table in the left decubitus position. The Olympus gastroscope was inserted into the oropharynx and passed under direct visualization to the region of the third portion of the duodenum. From that point the scope was slowly withdrawn inspecting all surfaces carefully. There were no neoplastic inflammatory or polypoid lesions throughout the duodenum. The pylorus was widely patent. The stomach was carefully inspected. There was mild gastritis diffusely. A biopsy of the antrum took place to rule out H. pylori. Retroflexion revealed a moderate sized hiatal hernia. The GE junction was present for to 5 cm above the diaphragmatic hiatus. There was no inflammatory changes within the stomach above the diaphragm. The esophagus was then carefully examined. There were no neoplastic inflammatory or polypoid lesions throughout the visualized esophagus. The patient was then taken to the recovery room in stable condition per anesthesia guidelines. Recommendations: Await biopsy results. As needed antiacids.
[2020-11-19 08:34] VITALS: PULSE 54
[2020-11-19 08:42] VITALS: BP 132/69
== END 2020-11-19 09:05 | disposition home or self-care (01) ==
LOC: ORWHC2ENDO 07:05
PROVIDERS: ATTEND Surgery
DX: K21.9 Gastro-esophageal reflux disease without esophagitis (principal); K29.50 Unspecified chronic gastritis without bleeding; K44.9 Diaphragmatic hernia without obstruction or gangrene; I25.10 Atherosclerotic heart disease of native coronary artery without angina pectoris; I10 Essential (primary) hypertension; E78.5 Hyperlipidemia, unspecified; E11.9 Type 2 diabetes mellitus without complications; E07.9 Disorder of thyroid, unspecified; Z86.73 Personal history of transient ischemic attack (TIA), and cerebral infarction without residual deficits
CPT/HCPCS: 43239; 88305; 88342; J2001; J2704

== ENCOUNTER → 2021-09-04 | Outpatient (CLI) | payer MEDICARE ==
--- NOTE | 2021-09-04 11:18 | XR ---
EXAMINATION TYPE: XR chest 2V DATE OF EXAM: 09/04/2021 COMPARISON: 11/03/2016 HISTORY: 75-year-old female R06.00, dyspnea on exertion, shortness of breath TECHNIQUE: Frontal and lateral views FINDINGS: Median sternotomy wires are present. Clips in the mediastinum. Heart normal size. No consolidation or pleural effusion. Stable calcified granuloma right upper lobe. Retained epicardial pacer leads. IMPRESSION: Post-CABG changes. Retained epicardial pacer leads. Unchanged calcified granuloma at the right upper lobe. No acute process seen.
== END | disposition home or self-care (01) ==
LOC: RADXRMAIN 10:38
PROVIDERS: ATTEND Family Medicine
DX: J98.4 Other disorders of lung (principal); Z95.1 Presence of aortocoronary bypass graft
CPT/HCPCS: 71046

== ENCOUNTER → 2021-11-11 | Outpatient (CLI) | payer MEDICARE ==
--- NOTE | 2021-11-11 10:23 | XR ---
EXAMINATION TYPE: XR lumbar spine 3 views DATE OF EXAM: 11/11/2021 Comparison: 05/19/2017 Clinical History: 75-year-old female M54.50 Low back pain Findings: Atherosclerotic calcifications within the splenic artery. A lead extends down to the left upper quadr ant. 5 lumbar type vertebral bodies. Hypertrophic facet arthropathy mid to lower lumbar spine. Degene rative trace grade 1 retrolisthesis L2-L3 and L3-L4. Degenerative trace grade 1 anterolisthesis L4-L5 . Moderate to advanced degenerative disc disease L2-L3. There is disc space narrowing, vacuum phenome non, endplate sclerosis and anterior spurring. Vertebral body heights are preserved. Impression: 1. Moderate to advanced degenerative disc disease L2-L3. 2. Hypertrophic facet arthropathy throughout with degenerative grade 1 spondylolisthesis L2-L3, L3-L4 , and L4-L5. 3. No vertebral compression collapse.
== END | disposition home or self-care (01) ==
LOC: RADXRMAIN 08:32
PROVIDERS: ATTEND Family Medicine
DX: M51.26 Other intervertebral disc displacement, lumbar region (principal); M43.16 Spondylolisthesis, lumbar region
CPT/HCPCS: 72100

== ENCOUNTER → 2022-08-18 | Outpatient (CLI) | payer MEDICARE ==
--- NOTE | 2022-08-18 18:09 | CT ---
EXAMINATION TYPE: CT chest wo con DATE OF EXAM: 08/18/2022 COMPARISON: None HISTORY: SOB CT DLP: 1155.9 mGycm, Automated exposure control for dose reduction was used. CONTRAST: None TECHNIQUE: Axial images were obtained at 1 mm thick sections at 10 mm intervals. This will limit po rtions of the examination which may not be visualized within the [id number]. Images were obtained in the prone and supine views. FINDINGS: Portion of the thyroid visualized is normal. There is a 0.7 cm calcification upper outer right lung may be a calcified granuloma. Some changes com patible with pulmonary fibrosis. The lung bases no significant change between prone and supine imagin g is 7. No enlarged mediastinal or hilar adenopathy is evident. The ascending aorta diameter at the level o f the main pulmonary artery is 3.4 cm. The main pulmonary artery diameter at the bifurcation is 3.3 cm. Coronary artery calcification is present. Limited CT sections are obtained through the upper abdomen. Calcified granulomata within the spleen. IMPRESSIONS: 1. Mild pulmonary fibrosis lung bases. 2. Suspect granuloma right upper lung field.
== END ==
LOC: CPPFTMAIN 11:16
PROVIDERS: ATTEND Internal Medicine Cardiovascular Disease
DX: R06.02 Shortness of breath (principal); J84.10 Pulmonary fibrosis, unspecified
CPT/HCPCS: 71250; 94060; 94726; 94729

== ENCOUNTER → 2023-05-05 | Outpatient (CLI) | payer MEDICARE ==
--- NOTE | 2023-05-05 14:16 | XR ---
EXAMINATION TYPE: XR lumbar spine 2 or 3V DATE OF EXAM: 05/05/2023 COMPARISON: 11/11/2021 HISTORY: Mid back pain TECHNIQUE: 3 view lumbar spine FINDINGS: There are 5 lumbar-type vertebral bodies. The pedicles are intact. There is loss of disc he ight at L3-4 and L2-3. Some vacuum disc phenomenon is present at L2-3. Spondylosis is present L2-4. A lignment appears preserved. IMPRESSION: 1. Degenerative disc changes L2-3 L3-4.
--- NOTE | 2023-05-05 14:25 | XR ---
EXAMINATION TYPE: XR thoracic spine 2V DATE OF EXAM: 05/05/2023 COMPARISON: CT chest 08/18/2022, 05/19/2017 HISTORY: Low back pain mid back pain TECHNIQUE: 3 view thoracic spine FINDINGS: There are 12 thoracic type vertebral bodies. Pedicles are intact. Narrowing of vertebral igor dy height in the region of T7 may be present. This area appears stable from comparison. Spondylosis a nd degenerative disc changes present diffusely. IMPRESSION: 1. Stable appearing mild compression region of T7 2. Degenerative disc changes diffusely
== END | disposition home or self-care (01) ==
LOC: RADXRMAIN 13:48
PROVIDERS: ATTEND Family Medicine
DX: M51.36 Other intervertebral disc degeneration, lumbar region (principal); M51.34 Other intervertebral disc degeneration, thoracic region
CPT/HCPCS: 72070; 72100

== ENCOUNTER → 2023-05-12 | Outpatient (CLI) | payer MEDICARE ==
--- NOTE | 2023-05-12 14:50 | BD ---
EXAMINATION TYPE: Axial Bone Density DATE OF EXAM: 05/12/2023 CLINICAL HISTORY: 77 years old Female. ICD-10 CODE: M85.80 OSTEOPENIA Height: 63.5 in Weight: 152 lbs FRAX RISK QUESTIONS: Secondary Osteoporosis: Rheumatoid Arthritis: yes but not being treated for RISK FACTORS MEDICATIONS: Thyroid Medications: yes Which medication: Levothyroxine How Lon+ years EXAM MEASUREMENTS: Bone mineral densitometry was performed using the [employer] System. Bone mineral density as measured about the Lumbar spine is: ----- L1-L4(G/cm2): 1.263 T Score Values are as follows: ----- L1: -1.4 ----- L2: 0.5 ----- L3: 3.3 ----- L4: 0.3 ----- L1-L4: 0.7 Z Score Values are as follows: ----- L1: 0.3 ----- L2: 2.2 ----- L3: 5.0 ----- L4: 1.9 ----- L1-L4: 2.4 Bone mineral density has: Decreased -2.2% since study of: 04/03/2016 Bone mineral density about the R hip (g/cm2): 0.701 Bone mineral density about the L hip (g/cm2): 0.749 T Score values are as follows: -----R Neck: -2.4 -----L Neck: -2.2 -----R Total: -2.4 -----L Total: -2.1 Z Score values are as follows: -----R Neck: -0.4 -----L Neck: -0.2 -----R Total: -0.6 -----L Total: -0.2 Bone mineral density has: Decreased -13.7% since study of: 04/03/2016 FRAX%s: The graph provided illustrates a 23.0% chance for a major osteoporotic fx and a 8.3% chance f or the hips probability for fx in 10 years time. IMPRESSION: Osteopenia (T Score between -2.5 and -1). There is slightly increased risk of fracture and the patient may be considered for treatment. Re-Screen 2-5 years. NOTE: T-SCORE=SD OF THE YOUNG ADULT MEAN.
== END | disposition home or self-care (01) ==
LOC: RADBDWWP 09:55
PROVIDERS: ATTEND Family Medicine
DX: M85.89 Other specified disorders of bone density and structure, multiple sites (principal)
CPT/HCPCS: 77080

== ENCOUNTER → 2023-09-15 | Outpatient (CLI) | payer MEDICARE ==
--- NOTE | 2023-09-19 09:34 | MR ---
EXAMINATION TYPE: MR lumbar spine wo con DATE OF EXAM: 09/15/2023 8:19 PM CLINICAL INDICATION:Female, 77 years old with history of M54.41 R LUMBAGO W [place] M54.42 L LUMBAGO W SC; [facility], Low back pain center and into both buttocks and back of thighs COMPARISON: None TECHNIQUE: Multi planar, multi sequence imaging was performed utilizing: T1-weighted, T2-weighted, a nd turbo inversion recovery imaging of the lumbar spine. IV Contrast: cc . (None if empty) FINDINGS: Alignment: The lumbar vertebral bodies have preserved heights and alignment. Cord: The conus medullaris and the distal spinal cord appear unremarkable with regards to their signa l intensity and morphology. Bones/Discs: Osteophyte and facet joint arthropathy worse in the lower spine at [id number]. Degeneration changes with bony edema in the superior endplate of L4 and round a suspected Schmorl's node in the in ferior endplate of L3. Multilevel disc desiccation is present. T12-L1: No evidence of significant spinal canal stenosis or neural foraminal stenosis. L1-L2: Disc bulge and facet joint arthropathy result in mild spinal canal and mild bilateral neural f oraminal stenosis. L2-L3: Disc bulge and facet joint arthropathy result in mild spinal canal and mild bilateral neural f oraminal stenosis. L3-L4: Disc bulge and facet joint arthropathy result in moderate to severe spinal canal and severe le ft and [id number] right neural foraminal stenosis. L4-L5: Disc bulge and facet joint arthropathy result in severe spinal canal and moderate severe left and severe right bilateral neural foraminal stenosis. L5-S1: The disc has a rounded posterior morphology without significant spinal canal stenosis. Facet j oint arthropathy with osteophyte resting and displacing the right nerve roots in the spinal canal ser ies 601 image 2 stenosis. No significant spinal canal or neural foraminal stenosis in the remainder of the visualized levels. Other findings: Dilation of the extra hepatic bladder system with common bile duct measuring up to 9 mm. The gallbladder is surgically absent. Left renal high T2 signal cyst. IMPRESSION: 1. L4-L5 severe spinal canal stenosis secondary disc bulge with severe right and moderate severe lef t neural foraminal stenosis. 2. L3-L4 moderate to severe spinal canal stenosis with moderate to severe right and severe left neur al foraminal stenosis. 3. Inferior endplate suspected Schmorl's node of L3 and reactive edema within the adjoining endplate s of L3-L4. 4. L5-S1 facet joint arthropathy which impresses upon the right nerve roots in the thecal sac displa cing them leftward.
== END | disposition home or self-care (01) ==
LOC: RADMRIMAIN 19:12
PROVIDERS: ATTEND Family Medicine
DX: M54.41 Lumbago with sciatica, right side (principal); M54.42 Lumbago with sciatica, left side; M51.36 Other intervertebral disc degeneration, lumbar region; M48.061 Spinal stenosis, lumbar region without neurogenic claudication; M51.26 Other intervertebral disc displacement, lumbar region; M47.819 Spondylosis without myelopathy or radiculopathy, site unspecified
CPT/HCPCS: 72148

== ENCOUNTER → 2023-11-03 | Outpatient (CLI) | payer MEDICARE ==
[2023-11-03 13:29] VITALS: BP 115/74; PULSE 63; RESP 16
--- NOTE | 2023-11-03 14:49 | P.PAINPG ---
PQRS Measure Charge Sheet Comment: HISTORY OF PRESENT ILLNESS: A 77 yr old female w at side as a referral from Dr Dasilva presents today w severe and chronic BLP> 1 yr secondary to DDD, spondylosis and facet arthropathy without myelopathy for evaluation. Pt states pain level is provoked at 9 /10 in intensity, constant, localized in the lumbar spine, predominantly axial, crampy in character w occasional shooting pain towards the buttocks and LEs. Pain is provoked by walking or lifting. Pain is alleviated by PT x 6 wks which ended in Jun 2023, physician guided home stretches daily since Jun 2023, heat, ice, medications (Tyl), repositioning and rest . Oswestry axial pain score at 25. PMH: OA, CAD, Angina, CVA, DM II, Hyperlipidemia, HTN, Hypothyroidism, Claustrophobia PSH: EGD (2020), Appendectomy, Bladder Surgery, Cholecystectomy, Coronary Bypass/CABG, Heart Catheterization With Stent x2, Hysterectomy, Tubal Ligation, BL Cataract Extraction, Dental Implants SH: Negative x3 FH: Fa- Dementia. Mo- Lung CA. All: See list Meds: See list REVIEW OF ORGAN SYSTEMS: CONSTITUTIONAL: No fevers or chills. No recent weight loss. NEUROLOGICAL: + numbness and tingling along the distal extremities. No seizure disorders or headaches. MUSCULOSKELETAL: + pain PSYCHIATRIC: Denies current depression or suicidal thoughts. Physical Examinations : Constitutional : Cooperative , not in acute distress . Neurologic : Cranial nerve II to XII intact. No focal neurological deficits. Psychiatric : alert & oriented x 3. Matching mood & appropriate affect. Judgment & insight intact. Musculoskeletal : Cervical Spine Motor strength in the deltoid and biceps: Normal right side. Normal Left side Motor strength biceps and the wrist extensors: Normal right side . Normal left side Motor strength in the triceps muscle: Normal right side. Normal left side Deep tendon reflexes: Normal at the biceps. Normal at Brachioradialis. Normal at triceps Vertebral body tenderness to deep palpation over Cervical facet loading test: positive bilaterally Spurling test: positive bilaterally Neck distraction test: positive bilaterally Anjali sign: positive bilaterally Lumbar spine Motor strength lower extremities ,thigh and legs 5/5 Right side , 5/5 Left side Deep tendon reflexes : Normal Knee Jerk. Normal Ankle Jerk Vertebral body tenderness over L3 Adams Test positive BL L3-L4 Lumbar facet Loading Test: positive Right / positive Left Range of motion of the lumbar spine Flexion 30 degrees, extension 10 degrees Straight Leg Raise test: Left/ Right positive at degrees Lupe test: positive right / positive left. Severe tenderness over the Sacroiliac joint on the Right / Left sides Gaenslen test: positive bilaterally Seated flexion test: positive bilaterally. Sacral spine : Severe tenderness over the Sacroiliac joint: right side / left side Range of motion: Flexion of the lumbar spine <60 degrees Range of motion: Extension of the lumbar spine <20 degrees Gaenslen's Test positive Lupe test: positive right side / left side Thigh Thrust Test Sacral Thrust Test Imaging: MRI non contrast lumbar spine from 09/15/23 reviewed Assessment/ Plan : Lumbar radiculopathy Recommendation of medication management [place] 5/325mg #18 NR Use, side effects, adverse reactions, safe storage discussed. Will review information on ESIs and may RTC on an as needed basis. All questions answered. I have spent greater than 30 minutes on patient care today. Dr Roldan was available by phone for the evaluation of this patient. The time was used to review the medical records including relevant urine studies and Prescription history (MAPs), review of the available imaging, evaluation and examination of the patient, coordination of care with the medical staff and if applicable referring physicians, as well as creation of the medical record - Pain Location Lower Back Non-Pharmacological Interventions: Heat, Ice, Inactivity Pharmacological Interventions: PRN Medication PQRS Narrative: Smoking Status Never smoker Home Medications: Ambulatory Orders Aspirin EC [Ecotrin Low Dose] 81 mg PO DAILY 11/03/16 Clopidogrel Bisulfate [Plavix] 75 mg PO DAILY 11/03/16 Ezetimibe/Simvastatin [Vytorin 10-40 mg Tablet] 1 tab PO DAILY 11/03/16 Insulin Glargine [Lantus] 16 unit SQ HS 11/03/16 Isosorbide Mononitrate ER [Imdur] 30 mg PO QMONTHLY 11/03/16 Levothyroxine Sodium [Synthroid] 75 mcg PO QAM 11/03/16 Calcium Carbonate/Vitamin D3 [Calcium 600 mg-D3 10 Mcg (400 Iu)] 1 cap PO DAILY 11/15/20 Cholecalciferol [Vitamin D3 (25 Mcg = 1000 Iu)] 25 mcg PO DAILY 11/15/20 INSULIN LISPRO (humaLOG) [humaLOG] 5 unit SQ AC-TID 11/15/20 Metoprolol Succinate (ER) [Toprol XL] 0.5 tab PO QAM 11/15/20 Nitroglycerin Sl Tabs [Nitrostat] 0.4 mg SL DIRECTED PRN 11/15/20 Vitamin B Complex/Folic Acid [Vitamin B Complex Tablet] 1 tab PO DAILY 11/15/20 Omeprazole [PriLOSEC] 20 mg PO AC-BRKFST #90 cap 11/19/20 HYDROcodone/APAP 5-325MG [[place] 5-325] 1 tab PO Q4HR PRN 3 Days #18 tab 11/03/23 Controlled Substance Measures - Controlled Substance Measures Is patient prescribed a controlled substance at discharge?: Yes When asked, does pt state using other controlled substances?: No If prescribed controlled substance>3 days was MAPS reviewed?: Prescribed <3 Days
== END ==
LOC: PNWHC3 13:02
PROVIDERS: ATTEND Specialist
DX: M51.16 Intervertebral disc disorders with radiculopathy, lumbar region (principal); M47.26 Other spondylosis with radiculopathy, lumbar region; Z79.02 Long term (current) use of antithrombotics/antiplatelets
CPT/HCPCS: 99211

== ENCOUNTER 2024-06-15 06:43 | Day surgery (SDC) | payer MEDICARE ==
[2024-06-12 14:38] VITALS: BMI 25.7
[2024-06-15] MEDS: IV FLUID CONTINUATION 1,000 ML IV ONE (07:45)
[2024-06-15 07:48] LABS: Glucose,Whole Blood 114 mg/dL (70-110)
[2024-06-15 07:53] VITALS: TEMP 97.8
[2024-06-15] MEDS ORDERED: IOPAMIDOL M200 10 ML VIAL ONE (07:57)
[2024-06-15] MEDS ORDERED: MIDAZOLAM 2 MG/2 ML VIAL ONE (07:57)
[2024-06-15] MEDS ORDERED: methylPREDNISolone ACETATE 40 MG/ML 1 ML VIAL ONE (07:57)
[2024-06-15] MEDS ORDERED: fentaNYL (PF) 50 MCG/ML 2 ML AMP ONE (07:57)
[2024-06-15] MEDS: IV FLUID CONTINUATION 800 ML IV ONE (08:10)
[2024-06-15 08:12] VITALS: RESP 16
--- NOTE | 2024-06-15 08:12 | P.PCN ---
Date of Procedure: 06/15/24 Procedure(s) Performed: PREOPERATIVE DIAGNOSIS: 1- Lumbar Degenerative Disc Diseases 2-Lumbar spondylosis with Facet arthropathy without myelopathy. 3-lumbar spinal stenosis 4-lumbar radiculopathy. POSTOPERATIVE DIAGNOSIS: 1-lumbar degenerative disc disease. 2-lumbar spondylosis with facet arthropathy without myelopathy. 3-lumbar spinal stenosis. 4-lumbar radiculopathy. PROCEDURE 1. Lumbar epidural steroid injection under fluoroscopic guidance at the L4-5 level. (Fluoroscopy imaging was available in radiology department) 2. Lumbar epidurogram. ANESTHESIA: Moderate sedation with Versed 1 mg and fentanyl 50 mcg (sedation start time 07:57 ,end time 08:02 ) and lidocaine 1% 3 ml . EBL: Minimal PROCEDURE INDICATION: The patient with low back pain and radiculitis symptoms unresponsive to conservative treatment. Fluoroscopy was used to optimize visualization of the needle placement and to maximize safety. PROCEDURE DESCRIPTION / TECHNIQUE: The patient was seen and identified in the preoperative area. Risks, benefits, complications including but not limited to infections ,bleeding ,allergic reaction to the medications ,nerve damage and not complete pain releife , and alternatives were discussed with the patient. The patient agreed to proceed with the procedure and signed the consent, and vital signs were stable. Patient was taken to the OR and time out was completed. The patient was placed in the prone position on procedure table and a pillow was placed under the abdomen to reduce lumbar lordosis. The lumbosacral area was prepped and draped in the usual sterile fashion.ere closely monitored during the procedure. Vital signs was monitered during the entire procedure. Using anterior-posterior fluoroscopy, the L4-5 interlaminar space was identified and the skin over this site was marked and then infiltrated with 1% lidocaine subcutaneously. Subsequently, a 20-gauge Tuohy epidural needle was inserted and advanced toward the epidural space using the ``Loss of resistance technique and guided by AP and lateral fluoroscopy. The correct needle position in the epidu ral space was verified with the injection of 2 mL of the water soluble contrast dye Isovue 200 contrast and observing an excellent epidurogram with the epidural spread of the dye, after negative aspiration for blood and CSF and in the absence of paresthesias. Again after negative aspiration, 4 ml mixture containing 40 mg of Depo-medrol ( Preservetive Free ), and 2 ml of preservative free Normal Saline, and 1 ml of preservative free lidocaine 1% solution was injected and a washout of epidurogram was seen. Needle was withdrawn intact, skin was cleansed, and bandages were applied. COMPLICATIONS: None DISPOSITION / PLANS: The patient was placed in a supine position and transferred to the recovery area in a stable condition for observation. There was no evidence of lower extremity motor or sensory deficit after the procedure. Patient was discharged from the recovery room after meeting discharge criteria. Home discharge instructions were given to the patient by the staff. The patient was reexamined prior to discharge. The patient will schedule a follow up in the clinic in 2-4 weeks.
[2024-06-15 08:26] VITALS: BP 132/68; PULSE 51
--- NOTE | 2024-06-15 08:35 | FL ---
EXAMINATION TYPE: FL guided pain mgmt statistic DATE OF EXAM: 06/15/2024 8:09 AM COMPARISON: Pre Operative Images if available both CT/MRI or plain film CLINICAL INDICATION: Female, 78 years old with history of LESI; TECHNIQUE: FL guided pain mgmt statistic, multiple fluoroscopic images provided for procedure. DAP: 0.62911 mGym2 Gycm2 uGym2 cGycm2 or equivalent. FINDINGS: Fluoroscopic images during injection for pain management demonstrate multilevel degeneration changes throughout the spine. No evidence for fracture. No acute process identified. IMPRESSION: 1. No evidence for intraoperative complication. 2. Please see the operative/procedural note for further details. [facility], , 06/15/2024 8:33 AM
== END 2024-06-15 08:47 | disposition home or self-care (01) ==
LOC: ORPAIN 06:43
PROVIDERS: ATTEND Specialist
DX: M51.16 Intervertebral disc disorders with radiculopathy, lumbar region (principal); M47.26 Other spondylosis with radiculopathy, lumbar region; M48.061 Spinal stenosis, lumbar region without neurogenic claudication
CPT/HCPCS: 62323; J2250; J3010; Q9966; J1010; 99152

== ENCOUNTER → 2024-07-06 | Outpatient (CLI) | payer MEDICARE ==
[2024-07-06 09:04] VITALS: BP 123/75; PULSE 55; RESP 18; TEMP 95.9
--- NOTE | 2024-07-06 14:14 | P.PAINPG ---
PQRS Measure Charge Sheet Comment: HISTORY OF PRESENT ILLNESS: A 78 yr old female w at side presents today w severe and chronic BLP> 1 yr secondary to radiculopathy, spondylosis and facet arthropathy without myelopathy for evaluation s/p SPRING L4-L5 #1. Pt states she experienced 70% pain relief x 2 wks s/p procedure. Pt states pain level is provoked at 9 /10 in intensity, constant, localized in the lumbar spine, predominantly axial, crampy in character w occasional shooting pain towards the R buttocks and RLE. Pain is provoked by bending, lifting. Pain is alleviated by PT x 6 wks which ended in Jun 2023, physician guided home stretches daily since Jun 2023, heat, ice, medications, repositioning and rest . Interventional procedures include SPRING L4-L5 x1 Medications include Ibu, Tyl REVIEW OF ORGAN SYSTEMS: CONSTITUTIONAL: No fevers or chills. No recent weight loss. NEUROLOGICAL: + numbness and tingling along the distal extremities. No seizure disorders or headaches. MUSCULOSKELETAL: + pain PSYCHIATRIC: Denies current depression or suicidal thoughts. Physical Examinations : Constitutional : Cooperative , not in acute distress . Neurologic : Cranial nerve II to XII intact. No focal neurological deficits. Psychiatric : alert & oriented x 3. Matching mood & appropriate affect. Judgment & insight intact. Musculoskeletal : Cervical Spine Motor strength in the deltoid and biceps: Normal right side. Normal Left side Motor strength biceps and the wrist extensors: Normal right side . Normal left side Motor strength in the triceps muscle: Normal right side. Normal left side Deep tendon reflexes: Normal at the biceps. Normal at Brachioradialis. Normal at triceps Vertebral body tenderness to deep palpation over Cervical facet loading test: positive bilaterally Spurling test: positive bilaterally Neck distraction test: positive bilaterally Anjali sign: positive bilaterally Lumbar spine Motor strength lower extremities ,thigh and legs 5/5 Right side , 5/5 Left side Deep tendon reflexes : Normal Knee Jerk. Normal Ankle Jerk Vertebral body tenderness over L5 Adams Test positive R L4-L5/ L5-S1 Lumbar facet Loading Test: positive Right / positive Left Range of motion of the lumbar spine Flexion 30 degrees, extension 10 degrees Straight Leg Raise test: Left/ Right positive at degrees Lupe test: positive right / positive left. Severe tenderness over the Sacroiliac joint on the Right / Left sides Gaenslen test: positive bilaterally Seated flexion test: positive bilaterally. Sacral spine : Severe tenderness over the Sacroiliac joint: right side / left side Range of motion: Flexion of the lumbar spine <60 degrees Range of motion: Extension of the lumbar spine <20 degrees Gaenslen's Test positive Lupe test: positive right side / left side Thigh Thrust Test Sacral Thrust Test Imaging: MRI non contrast lumbar spine from 09/15/23 reviewed Assessment/ Plan : Lumbar radiculopathy, Lumbar stenosis Recommendation of R TFESI L4-L5/ L5-S1 #1 and medication management. Risks, benefits of procedure discussed and pt verbalized understanding. Protocol for discontinuation/ continuation of medications lynda procedure discussed. Flexeril 5mg #30 w 1 RF. Use, side effects, adverse reactions, safe storage discussed. All questions answered. I have spent greater than 30 minutes on patient care today. Dr Roldan was available by phone for the evaluation of this patient. The time was used to review the medical records including relevant urine studies and Prescription history (MAPs), review of the available imaging, evaluation and examination of the patient, coordination of care with the medical staff and if applicable referring physicians, as well as creation of the medical record - Pain Location Lower Back Non-Pharmacological Interventions: Inactivity, Sitting PQRS Narrative: Smoking Status Never smoker Hx Alcohol Use (MH) No Home Medications: Ambulatory Orders Aspirin EC [Ecotrin Low Dose] 81 mg PO DAILY 11/03/16 Clopidogrel Bisulfate [Plavix] 75 mg PO DAILY 11/03/16 Ezetimibe/Simvastatin [Vytorin 10-40 mg Tablet] 1 tab PO DAILY 11/03/16 Insulin Glargine (Lantus) [Lantus] 16 unit SQ HS 11/03/16 Isosorbide Mononitrate ER [Imdur] 30 mg PO QAM 11/03/16 Levothyroxine Sodium [Synthroid] 75 mcg PO QAM 11/03/16 Calcium Carbonate/Vitamin D3 [Calcium 600 mg-D3 10 Mcg (400 Iu)] 1 cap PO DAILY 11/15/20 Cholecalciferol [Vitamin D3 (25 Mcg = 1000 Iu)] 25 mcg PO DAILY 11/15/20 INSULIN LISPRO (humaLOG) [humaLOG] 5 unit SQ AC-TID 11/15/20 Metoprolol Succinate (ER) [Toprol XL] 0.5 tab PO HS 11/15/20 Nitroglycerin Sl Tabs [Nitrostat] 0.4 mg SL DIRECTED PRN 11/15/20 Vitamin B Complex/Folic Acid [Vitamin B Complex] 1 tab PO DAILY 11/15/20 Cranberry Fruit Extract [Cranberry] 1 dose PO DAILY 06/12/24 INSULIN LISPRO (HumaLOG) [HumaLOG] 0 units SQ TID-W/MEALS 06/12/24 L.acidoph,Paracasei, B.lactis [Probiotic] 1 each PO DAILY 06/12/24 Magnesium Chloride [Slow-Mag] 2 dose PO DAILY 06/12/24 Cyclobenzaprine [Flexeril] 5 mg PO HS PRN 30 Days #30 tab 07/06/24 Controlled Substance Measures - Controlled Substance Measures Is patient prescribed a controlled substance at discharge?: No
== END ==
LOC: PNWHC3 08:16
PROVIDERS: ATTEND Specialist
DX: M48.061 Spinal stenosis, lumbar region without neurogenic claudication (principal); M47.16 Other spondylosis with myelopathy, lumbar region
CPT/HCPCS: 99211

== ENCOUNTER → 2024-08-24 | Outpatient (CLI) | payer MEDICARE ==
--- NOTE | 2024-08-24 16:26 | XR ---
EXAMINATION TYPE: XR lumbar spine 1V DATE OF EXAM: 08/24/2024 CLINICAL INDICATION: Female, 78 years old with history of W19.XXXA Fall M54.50 Low back pain, pain TECHNIQUE: Single frontal view of the lumbar spine is obtained as ordered. COMPARISON: Lumbar spine x-ray May 05, 2023 FINDINGS: Suboptimal evaluation with only single projection. There are 5 lumbar type vertebral bodies redemonstrated. Persistent levoconvex scoliosis centered at L5 level. Vertebral body heights fairly well preserved. No obvious acute displaced fracture. Persistent [id number]-[id number] narrowing and larg e left spurring at L2-L3 level. Persistent moderate disc space narrowing and spurring at L3-L4 level. A metallic wire overlies the epigastric region similar to prior. IMPRESSION: As above. [facility], , 08/24/2024 4:24 PM
--- NOTE | 2024-08-24 16:28 | XR ---
EXAMINATION TYPE: XR sacrum coccyx DATE OF EXAM: 08/24/2024 4:09 PM COMPARISON: None. CLINICAL INDICATION: Female, 78 years old with history of W19.XXXA Fall M54.50 Low back pain; gwen AZUL in TECHNIQUE: XR sacrum coccyx, examined in frontal and lateral projections. FINDINGS: There is no evidence of acute displaced fracture in the sacrum or coccyx. No abnormal calc ifications are present. Mild to moderate narrowing of both hip joints as partially imaged. There is b ilateral lateral vascular calcification extending into the groin region. IMPRESSION: As above. If clinical suspicion persists further investigation with CT pelvis exam would be warranted. [facility], , 08/24/2024 4:26 PM
== END | disposition home or self-care (01) ==
LOC: RADXRMAIN 15:46
PROVIDERS: ATTEND Family Medicine
DX: M41.86 Other forms of scoliosis, lumbar region (principal); W19.XXXA Unspecified fall, initial encounter
CPT/HCPCS: 72020; 72220

== ENCOUNTER → 2024-10-03 | Outpatient (CLI) | payer MEDICARE ==
--- NOTE | 2024-10-03 15:32 | CT ---
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 The lack of contrast limits evaluation of the vascular, mediastinal and parenchymal structures i ncluding the upper abdomen. CT DLP: 590 mGycm, Automated exposure control for dose reduction was used. FINDINGS: LUNGS: Calcified granuloma right upper lobe. The lungs are clear and free of infiltrate. No atelectas is. No pulmonary nodule or mass is detected. No pleural effusion. No CT evidence of interstitial l yas disease. MEDIASTINUM/KYUNG: Calcified mediastinal lymph nodes. Thoracic aorta is of normal caliber with limited evaluation given lack of contrast. No evidence for mediastinal mass. No lymph nodes greater than 1 cm. HEART: Size within normal limits. No significant coronary artery calcifications. UPPER ABDOMEN: No significant abnormality is seen. OTHER: No significant other abnormality. IMPRESSION: 1. Evidence of remote granulomatous disease. [facility], , 10/03/2024 3:30 PM
== END | disposition home or self-care (01) ==
LOC: RADCTMAIN 10:23
PROVIDERS: ATTEND Internal Medicine Critical Care Medicine
DX: J84.112 Idiopathic pulmonary fibrosis (principal)
CPT/HCPCS: 71250